=== PATIENT | female | born 2000 | race Caucasian/White ===

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

== ENCOUNTER 2022-07-01 01:11 | Emergency (ER) | payer OTHER ==
[2022-07-01 01:49] VITALS: BP 130/82; PULSE 109
[2022-07-01] MEDS ORDERED: Ibuprofen 600 MG Tab PO ONE (02:15)
== END 2022-07-01 02:33 | disposition home or self-care (01) ==
LOC: JD.ED 01:11
DX: U07.1 COVID-19 (principal)
CPT/HCPCS: 99283; A9270